=== PATIENT | female | born 1985 | race African-American/Black ===

== ENCOUNTER 2022-09-14 11:34 | Inpatient (IN) | payer OTHER ==
[2022-09-14 13:51] VITALS: BMI 27.1
[2022-09-14] MEDS ORDERED: POLYETHYLENE GLYCOL (HEALTHYLAX) 3350 17 GM PACKET PO PRN (17:03)
[2022-09-14] MEDS ORDERED: guaiFENesin 600 MG TABLET.ER (FP) PO PRN (17:03)
[2022-09-14] MEDS ORDERED: BENZOCAINE/MENTHOL (CHLORASEPTIC ) LOZENGE MM PRN (17:03)
[2022-09-14] MEDS ORDERED: NALOXONE HCL 0.4 MG/ML VIAL IM PRN (17:03)
[2022-09-14] MEDS ORDERED: hydrOXYzine PAMOATE 25 MG CAPSULE (FP) PO PRN (17:03)
[2022-09-14] MEDS ORDERED: diazePAM 5 MG TABLET PO PRN (17:03)
[2022-09-14] MEDS ORDERED: ACETAMINOPHEN 325 MG TABLET (FP) PO PRN (17:03)
[2022-09-14] MEDS ORDERED: ONDANSETRON *ODT* 4 MG TABLET SL PRN (17:03)
[2022-09-14] MEDS ORDERED: IBUPROFEN 400 MG TABLET (FP) PO PRN (17:03)
[2022-09-14] MEDS ORDERED: IBUPROFEN 600 MG TABLET (FP) PO PRN (17:03)
[2022-09-14] MEDS ORDERED: NALOXONE HCL (KLOXXADO) 8 MG SPRAY NS PRN (17:03)
[2022-09-14] MEDS ORDERED: BENZONATATE 200 MG CAPSULE PO PRN (17:03)
[2022-09-14] MEDS ORDERED: DICYCLOMINE HCL 10 MG CAPSULE PO PRN (17:03)
[2022-09-14] MEDS ORDERED: BISMUTH SUBSALICYLATE 524 MG/30 ML PO PRN (17:03)
[2022-09-14] MEDS ORDERED: MAGNESIUM HYDROX 2400MG/30ML ORAL SUSPENSION 30 ML CUP PO PRN (17:03)
[2022-09-14] MEDS ORDERED: MAG HYDROX/AL HYDROX/SIMETH 30 ML UNIT-DOSE CUP PO PRN (17:03)
[2022-09-14] MEDS ORDERED: LOPERAMIDE HCL 2 MG CAPSULE PO PRN (17:03)
[2022-09-14] MEDS: MELATONIN 5 MG TABLETS PO SCH (22:16)
[2022-09-14] MEDS: THIAMINE HCL 100 MG TABLET (FP) PO SCH (22:17)
[2022-09-14] MEDS: diazePAM 5 MG TABLET PO SCH (22:17)
[2022-09-15] MEDS: diazePAM 5 MG TABLET PO SCH ×4 (05:45→22:08)
[2022-09-15] MEDS ORDERED: HYDROCORTISONE 0.5% TOPICAL OINTMENT TUBE TP PRN (09:28)
[2022-09-15] MEDS ORDERED: HYDROCORTISONE 0.5% TOPICAL CREAM 30 GM TUBE TP PRN (10:01)
[2022-09-15] MEDS: PANTOPRAZOLE 20 MG TABLET PO SCH (10:29)
[2022-09-15] MEDS: PRENATAL VITAMINS W/ FOLIC ACID TABLET (FP) PO SCH (10:29)
[2022-09-15] MEDS ORDERED: metroNIDAZOLE 1% TOPICAL CREAM 60 GM/TUBE TP SCH (10:45)
[2022-09-15 11:07] LABS: HEMATOCRIT 33.9 % (32.4-45.2); HEMOGLOBIN 11.5 GM/dL (10.7-15.3); MCH 31.7 pg (25.7-33.7); MEAN PLT VOLUME 8.1 fl (7.5-11.1); PLATELET COUNT 255 10^3/uL (134-434); RBC 3.64 M/mm3 (3.60-5.2); RDW 14.9 % (11.6-15.6); WHITE BLOOD COUNT 3.4 K/mm3 (4.0-10.0)
[2022-09-15 11:12] LABS: POTASSIUM 3.9 mmol/L (3.5-5.1)
[2022-09-15 11:23] LABS: CALCIUM 9.1 mg/dL (8.5-10.1)
[2022-09-15 11:24] LABS: ALBUMIN 3.2 g/dl (3.4-5.0)
[2022-09-15 11:27] LABS: CREATININE 0.7 mg/dL (0.55-1.3)
[2022-09-15 11:28] LABS: BILIRUBIN,TOTAL 0.7 mg/dL (0.2-1); TOT PROT 6.7 g/dl (6.4-8.2)
[2022-09-15] MEDS: metroNIDAZOLE 0.75% TOPICAL GEL 45 GM TUBE TP SCH ×2 (11:47→22:07)
[2022-09-15] MEDS: METHOCARBAMOL 500 MG TABLET PO PRN (17:58)
[2022-09-15] MEDS: MELATONIN 5 MG TABLETS PO SCH (22:07)
[2022-09-15] MEDS: THIAMINE HCL 100 MG TABLET (FP) PO SCH (22:07)
[2022-09-16] MEDS: diazePAM 5 MG TABLET PO SCH ×3 (05:31→22:17)
[2022-09-16] MEDS: PANTOPRAZOLE 20 MG TABLET PO SCH (10:15)
[2022-09-16] MEDS: metroNIDAZOLE 0.75% TOPICAL GEL 45 GM TUBE TP SCH ×2 (10:15→22:17)
[2022-09-16] MEDS: PRENATAL VITAMINS W/ FOLIC ACID TABLET (FP) PO SCH (10:15)
[2022-09-16] MEDS: METHOCARBAMOL 500 MG TABLET PO PRN (22:17)
[2022-09-16] MEDS: THIAMINE HCL 100 MG TABLET (FP) PO SCH (22:17)
[2022-09-16] MEDS: MELATONIN 5 MG TABLETS PO SCH (22:17)
[2022-09-17] MEDS: diazePAM 5 MG TABLET PO SCH ×2 (05:28→17:45)
[2022-09-17] MEDS: metroNIDAZOLE 0.75% TOPICAL GEL 45 GM TUBE TP SCH ×2 (10:24→22:44)
[2022-09-17] MEDS: PANTOPRAZOLE 20 MG TABLET PO SCH (10:24)
[2022-09-17] MEDS: PRENATAL VITAMINS W/ FOLIC ACID TABLET (FP) PO SCH (10:24)
[2022-09-17 13:54] VITALS: RESP 18
[2022-09-17 20:43] VITALS: TEMP 97.8
[2022-09-17] MEDS: THIAMINE HCL 100 MG TABLET (FP) PO SCH (22:44)
[2022-09-17] MEDS: MELATONIN 5 MG TABLETS PO SCH (22:44)
[2022-09-18] MEDS ORDERED: diazePAM 5 MG TABLET PO ONE (06:00)
[2022-09-18 09:07] VITALS: BP 135/68; PULSE 92
[2022-09-18] MEDS: PRENATAL VITAMINS W/ FOLIC ACID TABLET (FP) PO SCH (09:39)
[2022-09-18] MEDS: PANTOPRAZOLE 20 MG TABLET PO SCH (09:39)
[2022-09-18] MEDS: metroNIDAZOLE 0.75% TOPICAL GEL 45 GM TUBE TP SCH (09:39)
== END 2022-09-18 11:20 | disposition home or self-care (01) | DRG 775 ==
LOC: YASAS 11:34 → Y6N 17:16
PROVIDERS: ADMIT Allergy & Immunology; ATTEND Surgery
PROC: HZ2ZZZZ Detoxification Services for Substance Abuse Treatment (ICD-10-PCS; principal; 2022-09-14)
DX: F10.230 Alcohol dependence with withdrawal, uncomplicated (principal); F10.280 Alcohol dependence with alcohol-induced anxiety disorder; K21.9 Gastro-esophageal reflux disease without esophagitis; Z62.810 Personal history of physical and sexual abuse in childhood; Z91.410 Personal history of adult physical and sexual abuse; Z88.8 Allergy status to other drugs, medicaments and biological substances
CPT/HCPCS: 36415; 80053; 81025; 85027; 86780; C9803-CS; U0003; U0005